=== PATIENT | female | born 1935 | race Caucasian/White ===

== ENCOUNTER 2019-12-10 06:09 | Observation (INO) ==
[~2019-12-10 06:09] MED LIST: Lactated Ringers 1000 ml BAG 1,000 ML IV SCH
[2019-12-10] MEDS ORDERED: Buffered Lidocaine 1% SYRIN 1 ml INTRADERM ONE (06:48)
[2019-12-10] MEDS ORDERED: ceFAZolin 2 GM PREMIX in ORs 2 GM/50 ML BAG ONE (06:48)
[2019-12-10] MEDS ORDERED: ROPIVACAINE 5 MG/ML 30 ML BTL (0.5%) ONE (07:06)
[2019-12-10] MEDS ORDERED: Propofol 10 MG/ML 20 ML BTL ONE (07:27)
[2019-12-10] MEDS ORDERED: Succinylcholine 200 mg VIAL 20 mg/ml 10 ml VIAL (200 mg) ONE (07:27)
[2019-12-10] MEDS ORDERED: Glycopyrrolate IV 0.2 MG/ML 1 ML VIAL ONE (07:27)
[2019-12-10] MEDS ORDERED: Bupivacaine 0.5% SDV PF 30ML VIAL ONE (07:27)
[2019-12-10] MEDS ORDERED: fentaNYL 100 mcg/2 ml 50 MCG/ML VIAL ONE (07:27)
[2019-12-10] MEDS ORDERED: Rocuronium 50 mg VIAL 10 mg/ml 5 ml VIAL (50 mg) ONE (07:50)
[2019-12-10] MEDS ORDERED: EPHEDrine (Pressors) 50 MG/ML VIAL ONE ×3 (08:07→09:16)
[2019-12-10] MEDS ORDERED: Phenylephrine 40 mcg/mL 10mL (400mcg) SYRINGE ONE (08:30)
[2019-12-10] MEDS ORDERED: Lidocaine 2% PF 10 ML AMP ONE (08:30)
[2019-12-10] MEDS ORDERED: Ondansetron 4 mg VIAL 2 MG/ML 2 ml VIAL ONE (08:48)
[2019-12-10] MEDS ORDERED: Dexamethasone IV 4 MG/ML VIAL 1 ml VIAL ONE (08:48)
[2019-12-10] MEDS ORDERED: Ondansetron ODT 4 mg TAB 4 MG TAB PO PRN (09:56)
[2019-12-10] MEDS ORDERED: diPHENhydraMINE IV 50 MG/ML 1 ml VIAL (BENADRYL) IV PRN (09:56)
[2019-12-10] MEDS ORDERED: Morphine 2 MG/ML SYRINGE IV PRN (09:56)
[2019-12-10] MEDS ORDERED: oxyCODONE/Acetamin 5/325 mg TAB PO PRN ×2 (09:56)
[2019-12-10] MEDS ORDERED: diPHENhydraMINE 25 mg TAB PO PRN (09:56)
[2019-12-10] MEDS ORDERED: Ondansetron 4 mg VIAL 2 MG/ML 2 ml VIAL IV PRN ×2 (09:56→10:14)
[2019-12-10] MEDS ORDERED: Lactulose 30 ml UDC PO PRN (09:56)
[2019-12-10] MEDS ORDERED: Magnesium Hydroxide LIQ 30 ML UDC PO PRN (09:56)
[2019-12-10] MEDS ORDERED: Naloxone 0.4 mg VIAL 0.4 mg/ml 1 ml VIAL IV PRN (10:14)
[2019-12-10] MEDS ORDERED: fentaNYL 100 mcg/2 ml 50 MCG/ML VIAL IV PRN (10:14)
[2019-12-10] MEDS: ceFAZolin 1 GM ADVAN(*) 1 GM in NS 0.9% 50 ML 50 ML IVPB SCH ×2 (15:19→22:45)
[2019-12-10] MEDS: Lactated Ringers 1000 ml BAG 1,000 ML IV SCH ×2 (15:19→21:43)
[2019-12-10] MEDS: Magnesium Hydroxide LIQ 30 ML UDC PO SCH (20:10)
[2019-12-11] MEDS ORDERED: Polyethylene Glycol 3350 17 GM PACKET PO PRN (00:01)
[2019-12-11 05:33] LABS: Hematocrit 27 % (35-47); Hemoglobin 9.6 g/dL (12.0-16.0); Mean Platelet Volume 9.2 fL (7.4-10.4); Platelet Count 149 10^3/uL (150-450)
[2019-12-11 05:48] LABS: BUN/Creatinine Ratio 21.2 (8-20); Calcium 7.8 mg/dL (8.6-10.3); EGFR African American 103.5 (>60); EGFR Non-African American 85.5 (>60); Potassium 3.8 mmol/L (3.5-5.0)
[2019-12-11] MEDS ORDERED: ceFAZolin 1 GM ADVAN(*) 1 GM in NS 0.9% 50 ML 50 ML IVPB SCH (06:15)
[2019-12-11] MEDS: Magnesium Hydroxide LIQ 30 ML UDC PO SCH (08:22)
[2019-12-11] MEDS: Lactated Ringers 1000 ml BAG 1,000 ML IV SCH (08:22)
[2019-12-11] MEDS ORDERED: Vitamin THERAPEUTIC TAB PO SCH (09:00)
[2019-12-11 11:27] VITALS: BP 132/64
== END 2019-12-11 14:16 | disposition home or self-care (01) ==
LOC: OR 06:09 → SSU 06:09
PROVIDERS: ADMIT Orthopaedic Surgery Adult Reconstructive Orthopaedic Surgery; ATTEND Orthopaedic Surgery Adult Reconstructive Orthopaedic Surgery